=== PATIENT | female | born 1935 | race Caucasian/White ===

== ENCOUNTER 2017-07-17 09:56 | Inpatient (IN) | payer MEDICARE, OTHER ==
[2017-07-17] MEDS: SOD CHLORIDE 0.9% 500 ML IV (10:52)
[2017-07-17 10:56] LABS: ADD MAN DIFF? NO
[2017-07-17 11:04] LABS: BASOPHIL # 0.1 10^3/ul (0.0-0.1); BASOPHILS % 0.4 % (0.0-2.0); EOSINOPHILS # 0.1 10^3/ul (0.0-0.5); EOSINOPHILS % 0.5 % (0.0-7.0); HEMATOCRIT 41.2 % (37.0-47.0); HEMOGLOBIN 13.4 g/dl (12.0-16.0); LYMPHOCYTES # 3.5 10^3/ul (0.8-2.9); LYMPHOCYTES % 29.8 % (15.0-51.0); MEAN CORPUSCULAR HEMOGLOBIN 29.6 pg (29.0-33.0); MEAN CORPUSCULAR HGB CONC 32.5 g/dl (32.0-37.0); MEAN CORPUSCULAR VOLUME 91.2 fl (82.0-101.0); MEAN PLATELET VOLUME 11.5 fl (7.4-10.4); MONOCYTE # 0.7 10^3/ul (0.3-0.9); MONOCYTES % 6.1 % (0.0-11.0); NEUTROPHIL # 7.3 10^3/ul (1.6-7.5); NEUTROPHILS % 62.3 % (39.0-77.0); PLATELET COUNT 329 10^3/UL (140-415); RED BLOOD COUNT 4.52 10^6/ul (4.20-5.40); RED CELL DISTRIBUTION WIDTH 14.1 % (11.5-14.5)
[2017-07-17 11:04] LABS: WHITE BLOOD COUNT 11.7 10^3/ul (4.8-10.8)
[2017-07-17] MEDS: DILTIAZEM 25 MG INJ IV (11:34)
[2017-07-17 12:39] LABS: ALANINE AMINOTRANSFERASE 33 IU/L (13-69); ALBUMIN 3.9 g/dl (3.3-4.9); ALBUMIN/GLOBULIN RATIO 0.95; ALKALINE PHOSPHATASE 77 IU/L (42-121); ANION GAP 20 (8-16); ASPARTATE AMINO TRANSFERASE 24 IU/L (15-46); BILIRUBIN,INDIRECT 0.2 mg/dl (0-1.1); BILIRUBIN,TOTAL 0.2 mg/dl (0.2-1.3); BLOOD UREA NITROGEN 88 mg/dl (7-20); CALCIUM 9.6 mg/dl (8.4-10.2); CARBON DIOXIDE 16 mmol/L (21-31); CHLORIDE 100 mmol/L (97-110); CREATININE 1.91 mg/dl (0.44-1.00); GLUCOSE 252 mg/dl (70-220); POTASSIUM 5.5 mmol/L (3.5-5.1); SODIUM 130 mmol/L (135-144)
[2017-07-17 12:49] LABS: B-TYPE NATRIURETIC PEPTIDE 2660 PG/ML (0-450); TROPONIN-I < 0.012 ng/ml (0.00-0.12)
[2017-07-17] MEDS ORDERED: ONDANSETRON 4 MG INJ IV (13:30)
[2017-07-17] MEDS ORDERED: GLUCAGON 1 MG INJ IM (13:30)
[2017-07-17] MEDS ORDERED: GLUCOSE GEL 15 GRAM TUBE PO ×2 (13:30)
[2017-07-17] MEDS ORDERED: DEXTROSE 50% 50 ML SYRINGE IV ×2 (13:30)
[2017-07-17] MEDS ORDERED: DILTIAZEM 25 MG INJ IV (16:30)
[2017-07-17] MEDS ORDERED: INSULIN ASPART [NOVOLOG] 3 ML PEN SC (17:00)
[2017-07-17] MEDS: INSULIN ASPART [NOVOLOG] 3 ML PEN SC ×2 (18:05→20:30)
[2017-07-17] MEDS ORDERED: BISACODYL 10 MG SUPP PR (18:30)
[2017-07-17] MEDS: DIGOXIN 500 MCG INJ IV (18:31)
[2017-07-17] MEDS: SOD CHLORIDE 0.9% 1,000 ML IV (20:14)
[2017-07-17] MEDS: NA POLYST SULFON 15 GM/60 ML BTL PO (20:14)
[2017-07-17] MEDS: APIXABAN 5 MG TABLET PO (20:41)
[2017-07-17] MEDS: METOPROLOL 25 MG TAB PO (20:41)
[2017-07-18] MEDS: DIGOXIN 500 MCG INJ IV ×3 (00:29→12:49)
[2017-07-18] MEDS: ACCU-CHEK XX (02:00)
[2017-07-18 07:28] LABS: ADD MAN DIFF? NO
[2017-07-18 07:32] LABS: WHITE BLOOD COUNT 9.7 10^3/ul (4.8-10.8)
[2017-07-18 07:32] LABS: BASOPHIL # 0.1 10^3/ul (0.0-0.1); BASOPHILS % 0.5 % (0.0-2.0); EOSINOPHILS # 0.1 10^3/ul (0.0-0.5); EOSINOPHILS % 0.5 % (0.0-7.0); HEMATOCRIT 38.4 % (37.0-47.0); LYMPHOCYTES % 31.1 % (15.0-51.0); MEAN CORPUSCULAR HEMOGLOBIN 30.2 pg (29.0-33.0); MEAN CORPUSCULAR HGB CONC 33.9 g/dl (32.0-37.0); MEAN CORPUSCULAR VOLUME 89.3 fl (82.0-101.0); MEAN PLATELET VOLUME 10.7 fl (7.4-10.4); MONOCYTE # 0.6 10^3/ul (0.3-0.9); MONOCYTES % 6.4 % (0.0-11.0); NEUTROPHIL # 5.9 10^3/ul (1.6-7.5); NEUTROPHILS % 60.4 % (39.0-77.0); PLATELET COUNT 394 10^3/UL (140-415); RED CELL DISTRIBUTION WIDTH 14.2 % (11.5-14.5)
[2017-07-18 07:58] LABS: CHOL/HDL RATIO 2.9 RATIO; HDL CHOLESTEROL 25 mg/dl (33-92); LDL CHOLESTEROL,CALCULATED 38 mg/dl; TRIGLYCERIDES 57 mg/dl (0-149)
[2017-07-18 07:58] LABS: CHOLESTEROL 74 mg/dl (100-200)
[2017-07-18] MEDS: INSULIN ASPART [NOVOLOG] 3 ML PEN SC ×4 (08:00→21:02)
[2017-07-18 08:12] LABS: ANION GAP 21 (8-16); BLOOD UREA NITROGEN 85 mg/dl (7-20); CALCIUM 10.1 mg/dl (8.4-10.2); CARBON DIOXIDE 20 mmol/L (21-31); CHLORIDE 102 mmol/L (97-110); CREATININE 1.79 mg/dl (0.44-1.00); GLUCOSE 166 mg/dl (70-220); SODIUM 138 mmol/L (135-144)
[2017-07-18] MEDS: PANTOPRAZOLE 40 MG INJ IV (08:49)
[2017-07-18] MEDS: ASCORBIC ACID 500 MG TAB PO (08:50)
[2017-07-18] MEDS: APIXABAN 5 MG TABLET PO ×2 (08:50→21:00)
[2017-07-18] MEDS: METOPROLOL 25 MG TAB PO ×2 (08:51→21:00)
[2017-07-18 09:10] LABS: THYROID STIMULATING HORMONE 0.353 MIU/L (0.465-4.680)
[2017-07-18] MEDS: METHIMAZOLE 5 MG TAB PO ×2 (12:55→21:01)
[2017-07-18] MEDS: SOD CHLORIDE 0.9% 1,000 ML IV (19:00)
[2017-07-18 19:55] LABS: FREE T4 (FREE THYROXINE) 2.25 ng/dl (0.85-1.93)
[2017-07-18] MEDS: ATORVASTATIN 10 MG TAB PO (21:00)
[2017-07-19] MEDS: ACCU-CHEK XX (02:00)
[2017-07-19] MEDS: SOD CHLORIDE 0.9% 1,000 ML IV (07:26)
[2017-07-19] MEDS: APIXABAN 5 MG TABLET PO ×2 (08:00→20:55)
[2017-07-19] MEDS: ASCORBIC ACID 500 MG TAB PO (08:00)
[2017-07-19] MEDS: METHIMAZOLE 5 MG TAB PO ×3 (08:00→20:54)
[2017-07-19] MEDS: PANTOPRAZOLE 40 MG INJ IV (08:00)
[2017-07-19] MEDS: METOPROLOL 25 MG TAB PO ×2 (08:01→20:54)
[2017-07-19] MEDS: INSULIN ASPART [NOVOLOG] 3 ML PEN SC ×4 (08:05→20:58)
[2017-07-19] MEDS: INFLUENZA VIRUS VACCINE 0.5 ML (DISPENSING) IM* (08:10)
[2017-07-19 10:10] LABS: ADD MAN DIFF? NO
[2017-07-19 10:15] LABS: WHITE BLOOD COUNT 11.5 10^3/ul (4.8-10.8)
[2017-07-19 10:15] LABS: BASOPHIL # 0.1 10^3/ul (0.0-0.1); BASOPHILS % 0.5 % (0.0-2.0); EOSINOPHILS # 0.1 10^3/ul (0.0-0.5); EOSINOPHILS % 0.9 % (0.0-7.0); HEMATOCRIT 36.3 % (37.0-47.0); LYMPHOCYTES % 26.2 % (15.0-51.0); MEAN CORPUSCULAR HEMOGLOBIN 29.3 pg (29.0-33.0); MEAN CORPUSCULAR HGB CONC 33.1 g/dl (32.0-37.0); MEAN CORPUSCULAR VOLUME 88.8 fl (82.0-101.0); MEAN PLATELET VOLUME 10.6 fl (7.4-10.4); MONOCYTE # 0.7 10^3/ul (0.3-0.9); MONOCYTES % 5.8 % (0.0-11.0); NEUTROPHIL # 7.6 10^3/ul (1.6-7.5); NEUTROPHILS % 65.6 % (39.0-77.0); PLATELET COUNT 387 10^3/UL (140-415); RED BLOOD COUNT 4.09 10^6/ul (4.20-5.40)
[2017-07-19 10:44] LABS: ANION GAP 18 (8-16); BLOOD UREA NITROGEN 67 mg/dl (7-20); CALCIUM 9.5 mg/dl (8.4-10.2); CARBON DIOXIDE 15 mmol/L (21-31); CHLORIDE 108 mmol/L (97-110); CREATININE 1.23 mg/dl (0.44-1.00); GLUCOSE 187 mg/dl (70-220); POTASSIUM 4.2 mmol/L (3.5-5.1); SODIUM 137 mmol/L (135-144)
[2017-07-19 10:49] LABS: MAGNESIUM 1.6 mg/dl (1.7-2.5)
[2017-07-19] MEDS: MAGNESIUM SULFATE 2 GM/50 ML 50 ML IVPB ×2 (13:42→16:29)
[2017-07-19] MEDS: ATORVASTATIN 10 MG TAB PO (20:55)
[2017-07-19] MEDS: INSULIN GLARGINE [LANtus] 3 ML PEN SC (20:58)
[2017-07-19] MEDS: CITRIC ACID/SODIUM CITRATE 15 ML CUP PO (22:13)
[2017-07-20] MEDS: ACCU-CHEK XX (02:40)
[2017-07-20] MEDS: INSULIN ASPART [NOVOLOG] 3 ML PEN SC ×5 (08:00→21:02)
[2017-07-20] MEDS: CITRIC ACID/SODIUM CITRATE 15 ML CUP PO ×2 (08:37→20:33)
[2017-07-20] MEDS: PANTOPRAZOLE 40 MG INJ IV (08:37)
[2017-07-20] MEDS: ASCORBIC ACID 500 MG TAB PO (08:38)
[2017-07-20] MEDS: METHIMAZOLE 5 MG TAB PO ×3 (08:38→20:33)
[2017-07-20] MEDS: METOPROLOL 25 MG TAB PO ×2 (08:38→20:34)
[2017-07-20] MEDS: APIXABAN 5 MG TABLET PO ×2 (08:38→20:34)
[2017-07-20 09:02] LABS: ANION GAP 18 (8-16); BLOOD UREA NITROGEN 53 mg/dl (7-20); CALCIUM 9.5 mg/dl (8.4-10.2); CARBON DIOXIDE 19 mmol/L (21-31); CHLORIDE 109 mmol/L (97-110); CREATININE 1.07 mg/dl (0.44-1.00); GLUCOSE 56 mg/dl (70-220); MAGNESIUM 2.8 mg/dl (1.7-2.5); POTASSIUM 3.7 mmol/L (3.5-5.1); SODIUM 142 mmol/L (135-144)
[2017-07-20] MEDS ORDERED: PENDING SANTYL ORDER FOR WOUND CARE XX (10:30)
[2017-07-20] MEDS: COLLAGENASE 30 GM TUBE TOP (12:32)
[2017-07-20] MEDS: SOD CHLORIDE 0.9% 1,000 ML IV (12:33)
[2017-07-20] MEDS: INSULIN GLARGINE [LANtus] 3 ML PEN SC (20:32)
[2017-07-20] MEDS: ATORVASTATIN 10 MG TAB PO (20:34)
[2017-07-21] MEDS: ACCU-CHEK XX (01:04)
[2017-07-21 07:12] LABS: ADD MAN DIFF? NO
[2017-07-21 07:15] LABS: WHITE BLOOD COUNT 11.6 10^3/ul (4.8-10.8)
[2017-07-21 07:15] LABS: BASOPHIL # 0.1 10^3/ul (0.0-0.1); BASOPHILS % 0.4 % (0.0-2.0); EOSINOPHILS # 0.2 10^3/ul (0.0-0.5); EOSINOPHILS % 1.3 % (0.0-7.0); HEMOGLOBIN 11.1 g/dl (12.0-16.0); LYMPHOCYTES # 3.3 10^3/ul (0.8-2.9); LYMPHOCYTES % 28.1 % (15.0-51.0); MEAN CORPUSCULAR HEMOGLOBIN 30.2 pg (29.0-33.0); MEAN CORPUSCULAR HGB CONC 33.6 g/dl (32.0-37.0); MEAN CORPUSCULAR VOLUME 89.7 fl (82.0-101.0); MEAN PLATELET VOLUME 10.1 fl (7.4-10.4); MONOCYTE # 0.7 10^3/ul (0.3-0.9); MONOCYTES % 6.3 % (0.0-11.0); NEUTROPHIL # 7.3 10^3/ul (1.6-7.5); NEUTROPHILS % 62.8 % (39.0-77.0); PLATELET COUNT 342 10^3/UL (140-415); RED BLOOD COUNT 3.68 10^6/ul (4.20-5.40); RED CELL DISTRIBUTION WIDTH 14.4 % (11.5-14.5)
[2017-07-21] MEDS: INSULIN ASPART [NOVOLOG] 3 ML PEN SC ×7 (07:59→21:00)
[2017-07-21 08:05] LABS: ANION GAP 15 (8-16); BLOOD UREA NITROGEN 35 mg/dl (7-20); CALCIUM 8.7 mg/dl (8.4-10.2); CARBON DIOXIDE 22 mmol/L (21-31); CHLORIDE 108 mmol/L (97-110); CREATININE 0.83 mg/dl (0.44-1.00); GLUCOSE 79 mg/dl (70-220); POTASSIUM 3.8 mmol/L (3.5-5.1); SODIUM 141 mmol/L (135-144)
[2017-07-21] MEDS: PANTOPRAZOLE 40 MG INJ IV (08:21)
[2017-07-21] MEDS: CITRIC ACID/SODIUM CITRATE 15 ML CUP PO ×2 (08:21→21:20)
[2017-07-21] MEDS: ASCORBIC ACID 500 MG TAB PO (08:22)
[2017-07-21] MEDS: METHIMAZOLE 5 MG TAB PO ×3 (08:22→21:20)
[2017-07-21] MEDS: APIXABAN 5 MG TABLET PO ×2 (08:22→21:20)
[2017-07-21] MEDS: LINAGLIPTIN 5 MG TABLET PO (08:22)
[2017-07-21] MEDS: METOPROLOL 25 MG TAB PO ×2 (08:22→21:21)
[2017-07-21] MEDS: COLLAGENASE 30 GM TUBE TOP (08:23)
[2017-07-21 16:09] LABS: ADD UMIC YES; UR ASCORBIC ACID 40 mg/dL (NEGATIVE); UR BACTERIA MANY /HPF (NONE SEEN); UR BILIRUBIN (Dip) NEGATIVE (NEGATIVE); UR BLOOD (Dip) 1+ mg/dL (NEGATIVE); UR CLARITY TURBID (CLEAR); UR COLOR AMBER (YELLOW); UR GLUCOSE (Dip) NEGATIVE (NEGATIVE); UR KETONES (Dip) NEGATIVE (NEGATIVE); UR LEUKOCYTE ESTERASE (Dip) 3+ Leu/ul (NEGATIVE); UR MUCUS MANY /HPF (NONE SEEN); UR NITRITE (Dip) POSITIVE (NEGATIVE); UR NONSQUAMOUS EPITHELIAL CELL 2 /HPF (NONE SEEN); UR RBC 56 /HPF (0-5); UR SPECIFIC GRAVITY (Dip) 1.014 (1.003-1.030); UR SQUAMOUS EPITHELIAL CELL FEW /HPF (FEW); UR TOTAL PROTEIN (Dip) 1+ mg/dl (NEGATIVE); UR UROBILINOGEN (Dip) 1+ mg/dL (NEGATIVE); UR WBC > 182 /HPF (0-5)
[2017-07-21] MEDS: GLUCOSE GEL 15 GRAM TUBE BUCCAL (17:21)
[2017-07-21] MEDS: SOD CHLORIDE 0.9% 1,000 ML IV (17:26)
[2017-07-21 18:32] LABS: GLUCOSE 102 mg/dl (70-220)
[2017-07-21] MEDS: INSULIN GLARGINE [LANtus] 3 ML PEN SC (21:06)
[2017-07-21] MEDS: ATORVASTATIN 10 MG TAB PO (21:20)
[2017-07-22] MEDS: ACCU-CHEK XX (01:01)
[2017-07-22] MEDS: INSULIN ASPART [NOVOLOG] 3 ML PEN SC ×7 (08:00→20:30)
[2017-07-22] MEDS: PANTOPRAZOLE 40 MG INJ IV (08:22)
[2017-07-22] MEDS: CITRIC ACID/SODIUM CITRATE 15 ML CUP PO ×2 (08:23→20:25)
[2017-07-22] MEDS: METOPROLOL 25 MG TAB PO ×2 (08:23→20:26)
[2017-07-22] MEDS: APIXABAN 5 MG TABLET PO ×2 (08:23→20:33)
[2017-07-22] MEDS: METHIMAZOLE 5 MG TAB PO ×3 (08:23→20:25)
[2017-07-22] MEDS: COLLAGENASE 30 GM TUBE TOP (08:24)
[2017-07-22] MEDS: LINAGLIPTIN 5 MG TABLET PO (08:24)
[2017-07-22] MEDS: ASCORBIC ACID 500 MG TAB PO (08:24)
[2017-07-22 09:03] LABS: ADD MAN DIFF? NO
[2017-07-22 09:04] LABS: WHITE BLOOD COUNT 13.4 10^3/ul (4.8-10.8)
[2017-07-22 09:04] LABS: BASOPHIL # 0.1 10^3/ul (0.0-0.1); BASOPHILS % 0.4 % (0.0-2.0); EOSINOPHILS # 0.2 10^3/ul (0.0-0.5); EOSINOPHILS % 1.6 % (0.0-7.0); HEMATOCRIT 36.6 % (37.0-47.0); HEMOGLOBIN 11.8 g/dl (12.0-16.0); LYMPHOCYTES # 3.3 10^3/ul (0.8-2.9); LYMPHOCYTES % 24.7 % (15.0-51.0); MEAN CORPUSCULAR HEMOGLOBIN 29.4 pg (29.0-33.0); MEAN CORPUSCULAR HGB CONC 32.2 g/dl (32.0-37.0); MEAN CORPUSCULAR VOLUME 91.3 fl (82.0-101.0); MONOCYTE # 0.7 10^3/ul (0.3-0.9); MONOCYTES % 5.5 % (0.0-11.0); NEUTROPHIL # 8.9 10^3/ul (1.6-7.5); NEUTROPHILS % 66.7 % (39.0-77.0); PLATELET COUNT 326 10^3/UL (140-415); RED BLOOD COUNT 4.01 10^6/ul (4.20-5.40); RED CELL DISTRIBUTION WIDTH 14.4 % (11.5-14.5)
[2017-07-22 09:25] LABS: ANION GAP 15 (8-16); BLOOD UREA NITROGEN 26 mg/dl (7-20); CALCIUM 8.6 mg/dl (8.4-10.2); CARBON DIOXIDE 23 mmol/L (21-31); CHLORIDE 106 mmol/L (97-110); CREATININE 0.75 mg/dl (0.44-1.00); GLUCOSE 111 mg/dl (70-220); SODIUM 140 mmol/L (135-144)
[2017-07-22] MEDS: SOD CHLORIDE 0.9% 1,000 ML IV ×2 (17:37→19:00)
[2017-07-22] MEDS: ATORVASTATIN 10 MG TAB PO (20:25)
[2017-07-22] MEDS: INSULIN GLARGINE [LANtus] 3 ML PEN SC (20:30)
[2017-07-23] MEDS: ACCU-CHEK XX ×2 (02:00→23:29)
[2017-07-23 07:41] LABS: ADD MAN DIFF? NO
[2017-07-23 07:47] LABS: BASOPHIL # 0.1 10^3/ul (0.0-0.1); BASOPHILS % 0.4 % (0.0-2.0); EOSINOPHILS # 0.3 10^3/ul (0.0-0.5); EOSINOPHILS % 1.8 % (0.0-7.0); HEMATOCRIT 32.1 % (37.0-47.0); HEMOGLOBIN 10.5 g/dl (12.0-16.0); LYMPHOCYTES # 3.4 10^3/ul (0.8-2.9); LYMPHOCYTES % 23.9 % (15.0-51.0); MEAN CORPUSCULAR HEMOGLOBIN 29.9 pg (29.0-33.0); MEAN CORPUSCULAR HGB CONC 32.7 g/dl (32.0-37.0); MEAN CORPUSCULAR VOLUME 91.5 fl (82.0-101.0); MEAN PLATELET VOLUME 11.4 fl (7.4-10.4); MONOCYTE # 0.9 10^3/ul (0.3-0.9); MONOCYTES % 6.1 % (0.0-11.0); NEUTROPHIL # 9.5 10^3/ul (1.6-7.5); NEUTROPHILS % 66.9 % (39.0-77.0); RED BLOOD COUNT 3.51 10^6/ul (4.20-5.40); RED CELL DISTRIBUTION WIDTH 14.6 % (11.5-14.5)
[2017-07-23 07:47] LABS: WHITE BLOOD COUNT 14.2 10^3/ul (4.8-10.8)
[2017-07-23 07:51] LABS: PLATELET COUNT 202 10^3/UL (140-415); POSITIVE DIFF @See below
[2017-07-23 08:09] LABS: ANION GAP 14 (8-16); BLOOD UREA NITROGEN 25 mg/dl (7-20); CALCIUM 8.4 mg/dl (8.4-10.2); CARBON DIOXIDE 24 mmol/L (21-31); CHLORIDE 103 mmol/L (97-110); CREATININE 0.75 mg/dl (0.44-1.00); GLUCOSE 157 mg/dl (70-220); POTASSIUM 4.4 mmol/L (3.5-5.1); SODIUM 137 mmol/L (135-144)
[2017-07-23] MEDS: ASCORBIC ACID 500 MG TAB PO (08:33)
[2017-07-23] MEDS: LINAGLIPTIN 5 MG TABLET PO (08:33)
[2017-07-23] MEDS: APIXABAN 5 MG TABLET PO ×2 (08:33→20:37)
[2017-07-23] MEDS: PANTOPRAZOLE 40 MG INJ IV (08:33)
[2017-07-23] MEDS: METHIMAZOLE 5 MG TAB PO ×3 (08:34→20:36)
[2017-07-23] MEDS: METOPROLOL 25 MG TAB PO ×2 (08:35→20:36)
[2017-07-23] MEDS: INSULIN ASPART [NOVOLOG] 3 ML PEN SC ×7 (08:53→20:37)
[2017-07-23] MEDS: COLLAGENASE 30 GM TUBE TOP (08:54)
[2017-07-23] MEDS: CITRIC ACID/SODIUM CITRATE 15 ML CUP PO (12:33)
[2017-07-23] MEDS ORDERED: CEFEPIME 1GM/50 ML (PMX) 50 ML IVPB (16:30)
[2017-07-23] MEDS: SOD CHLORIDE 0.9% 1,000 ML IV (19:00)
[2017-07-23] MEDS: INSULIN GLARGINE [LANtus] 3 ML PEN SC (20:35)
[2017-07-23] MEDS: ATORVASTATIN 10 MG TAB PO (20:36)
[2017-07-23] MEDS: CEFEPIME 1GM/50 ML (PMX) 50 ML IVPB (20:39)
[2017-07-24] MEDS: CITRIC ACID/SODIUM CITRATE 15 ML CUP PO ×3 (00:45→21:00)
[2017-07-24] MEDS: ACETAMINOPHEN 325 MG TAB PO (07:27)
[2017-07-24 07:54] LABS: ADD MAN DIFF? NO
[2017-07-24 07:58] LABS: WHITE BLOOD COUNT 11.7 10^3/ul (4.8-10.8)
[2017-07-24 07:58] LABS: BASOPHIL # 0.1 10^3/ul (0.0-0.1); BASOPHILS % 0.4 % (0.0-2.0); EOSINOPHILS # 0.3 10^3/ul (0.0-0.5); EOSINOPHILS % 2.1 % (0.0-7.0); HEMATOCRIT 31.8 % (37.0-47.0); HEMOGLOBIN 10.3 g/dl (12.0-16.0); LYMPHOCYTES # 3.4 10^3/ul (0.8-2.9); LYMPHOCYTES % 28.6 % (15.0-51.0); MEAN CORPUSCULAR HEMOGLOBIN 29.9 pg (29.0-33.0); MEAN CORPUSCULAR HGB CONC 32.4 g/dl (32.0-37.0); MEAN CORPUSCULAR VOLUME 92.2 fl (82.0-101.0); MEAN PLATELET VOLUME 10.7 fl (7.4-10.4); MONOCYTE # 0.7 10^3/ul (0.3-0.9); MONOCYTES % 5.8 % (0.0-11.0); NEUTROPHIL # 7.3 10^3/ul (1.6-7.5); NEUTROPHILS % 62.2 % (39.0-77.0); PLATELET COUNT 269 10^3/UL (140-415); RED BLOOD COUNT 3.45 10^6/ul (4.20-5.40); RED CELL DISTRIBUTION WIDTH 14.5 % (11.5-14.5)
[2017-07-24 08:21] LABS: ANION GAP 13 (8-16); BLOOD UREA NITROGEN 24 mg/dl (7-20); CALCIUM 8.3 mg/dl (8.4-10.2); CARBON DIOXIDE 26 mmol/L (21-31); CHLORIDE 104 mmol/L (97-110); GLUCOSE 132 mg/dl (70-220); POTASSIUM 3.8 mmol/L (3.5-5.1); SODIUM 139 mmol/L (135-144)
[2017-07-24] MEDS: APIXABAN 5 MG TABLET PO ×2 (09:00→20:32)
[2017-07-24] MEDS: METOPROLOL 25 MG TAB PO ×2 (09:00→20:34)
[2017-07-24] MEDS: ASCORBIC ACID 500 MG TAB PO (09:00)
[2017-07-24] MEDS: LINAGLIPTIN 5 MG TABLET PO (09:01)
[2017-07-24] MEDS: METHIMAZOLE 5 MG TAB PO ×3 (09:01→20:32)
[2017-07-24] MEDS: PANTOPRAZOLE 40 MG INJ IV (09:02)
[2017-07-24] MEDS: COLLAGENASE 30 GM TUBE TOP (09:03)
[2017-07-24] MEDS: INSULIN ASPART [NOVOLOG] 3 ML PEN SC ×7 (09:09→20:34)
[2017-07-24] MEDS: CEFEPIME 1GM/50 ML (PMX) 50 ML IVPB ×2 (09:24→20:31)
[2017-07-24] MEDS: ATORVASTATIN 10 MG TAB PO (20:32)
[2017-07-24] MEDS: SOD CHLORIDE 0.9% 1,000 ML IV (20:36)
[2017-07-24] MEDS: INSULIN GLARGINE [LANtus] 3 ML PEN SC (20:37)
[2017-07-24] MEDS: ACCU-CHEK XX (20:54)
[2017-07-25] MEDS: CITRIC ACID/SODIUM CITRATE 15 ML CUP PO ×3 (00:22→22:41)
[2017-07-25] MEDS: ACETAMINOPHEN 325 MG TAB PO (00:28)
[2017-07-25 07:50] LABS: ADD MAN DIFF? NO
[2017-07-25 08:01] LABS: BASOPHIL # 0.1 10^3/ul (0.0-0.1); BASOPHILS % 0.5 % (0.0-2.0); EOSINOPHILS # 0.3 10^3/ul (0.0-0.5); EOSINOPHILS % 2.7 % (0.0-7.0); HEMATOCRIT 30.4 % (37.0-47.0); HEMOGLOBIN 9.9 g/dl (12.0-16.0); LYMPHOCYTES % 32.4 % (15.0-51.0); MEAN CORPUSCULAR HEMOGLOBIN 29.6 pg (29.0-33.0); MEAN CORPUSCULAR HGB CONC 32.6 g/dl (32.0-37.0); MEAN PLATELET VOLUME 10.7 fl (7.4-10.4); MONOCYTE # 0.6 10^3/ul (0.3-0.9); MONOCYTES % 6.7 % (0.0-11.0); NEUTROPHIL # 5.2 10^3/ul (1.6-7.5); NEUTROPHILS % 56.7 % (39.0-77.0); PLATELET COUNT 226 10^3/UL (140-415); RED BLOOD COUNT 3.34 10^6/ul (4.20-5.40); RED CELL DISTRIBUTION WIDTH 14.2 % (11.5-14.5)
[2017-07-25 08:01] LABS: WHITE BLOOD COUNT 9.2 10^3/ul (4.8-10.8)
[2017-07-25 08:21] LABS: LACTIC ACID 0.8 mmol/L (0.5-2.0)
[2017-07-25 08:31] LABS: ANION GAP 14 (8-16); BLOOD UREA NITROGEN 32 mg/dl (7-20); CALCIUM 7.9 mg/dl (8.4-10.2); CARBON DIOXIDE 25 mmol/L (21-31); CHLORIDE 104 mmol/L (97-110); CREATININE 0.77 mg/dl (0.44-1.00); GLUCOSE 193 mg/dl (70-220); POTASSIUM 4.2 mmol/L (3.5-5.1); SODIUM 139 mmol/L (135-144)
[2017-07-25] MEDS: INSULIN ASPART [NOVOLOG] 3 ML PEN SC ×7 (08:55→21:00)
[2017-07-25] MEDS: METHIMAZOLE 5 MG TAB PO ×3 (08:56→22:39)
[2017-07-25] MEDS: APIXABAN 5 MG TABLET PO ×2 (08:56→22:40)
[2017-07-25] MEDS: COLLAGENASE 30 GM TUBE TOP (08:56)
[2017-07-25] MEDS: ASCORBIC ACID 500 MG TAB PO (08:56)
[2017-07-25] MEDS: LINAGLIPTIN 5 MG TABLET PO (08:57)
[2017-07-25] MEDS: METOPROLOL 25 MG TAB PO ×2 (08:57→22:46)
[2017-07-25] MEDS: PANTOPRAZOLE 40 MG INJ IV (09:05)
[2017-07-25] MEDS: CEFEPIME 1GM/50 ML (PMX) 50 ML IVPB (09:24)
[2017-07-25] MEDS ORDERED: CEFTRIAXONE 1 GM/50 ML (PMX) 50 ML IVPB (17:30)
[2017-07-25] MEDS: CEFTRIAXONE 1 GM/50 ML (PMX) 50 ML IVPB (22:38)
[2017-07-25] MEDS: SOD CHLORIDE 0.9% 1,000 ML IV (22:38)
[2017-07-25] MEDS: ATORVASTATIN 10 MG TAB PO (22:39)
[2017-07-25] MEDS: INSULIN GLARGINE [LANtus] 3 ML PEN SC (22:43)
[2017-07-26] MEDS: ACCU-CHEK XX (01:07)
[2017-07-26 08:00] LABS: ADD MAN DIFF? NO
[2017-07-26 08:04] LABS: BASOPHIL # 0.1 10^3/ul (0.0-0.1); BASOPHILS % 0.6 % (0.0-2.0); EOSINOPHILS # 0.3 10^3/ul (0.0-0.5); HEMATOCRIT 32.4 % (37.0-47.0); HEMOGLOBIN 10.4 g/dl (12.0-16.0); LYMPHOCYTES # 2.9 10^3/ul (0.8-2.9); LYMPHOCYTES % 33.8 % (15.0-51.0); MEAN CORPUSCULAR HEMOGLOBIN 29.1 pg (29.0-33.0); MEAN CORPUSCULAR HGB CONC 32.1 g/dl (32.0-37.0); MEAN CORPUSCULAR VOLUME 90.8 fl (82.0-101.0); MEAN PLATELET VOLUME 11.2 fl (7.4-10.4); MONOCYTE # 0.6 10^3/ul (0.3-0.9); MONOCYTES % 7.4 % (0.0-11.0); NEUTROPHIL # 4.7 10^3/ul (1.6-7.5); NEUTROPHILS % 53.9 % (39.0-77.0); PLATELET COUNT 244 10^3/UL (140-415); RED BLOOD COUNT 3.57 10^6/ul (4.20-5.40); RED CELL DISTRIBUTION WIDTH 14.2 % (11.5-14.5)
[2017-07-26 08:04] LABS: WHITE BLOOD COUNT 8.7 10^3/ul (4.8-10.8)
[2017-07-26 08:32] LABS: ANION GAP 13 (8-16); BLOOD UREA NITROGEN 23 mg/dl (7-20); CALCIUM 8.2 mg/dl (8.4-10.2); CARBON DIOXIDE 26 mmol/L (21-31); CHLORIDE 103 mmol/L (97-110); CREATININE 0.73 mg/dl (0.44-1.00); GLUCOSE 150 mg/dl (70-220); POTASSIUM 4.1 mmol/L (3.5-5.1); SODIUM 138 mmol/L (135-144)
[2017-07-26] MEDS: INSULIN ASPART [NOVOLOG] 3 ML PEN SC ×7 (08:32→20:20)
[2017-07-26] MEDS: PANTOPRAZOLE 40 MG INJ IV (08:32)
[2017-07-26] MEDS: CITRIC ACID/SODIUM CITRATE 15 ML CUP PO ×2 (08:33→20:18)
[2017-07-26] MEDS: APIXABAN 5 MG TABLET PO ×2 (08:33→20:18)
[2017-07-26] MEDS: LINAGLIPTIN 5 MG TABLET PO (08:33)
[2017-07-26] MEDS: METHIMAZOLE 5 MG TAB PO ×3 (08:33→20:22)
[2017-07-26] MEDS: ASCORBIC ACID 500 MG TAB PO (08:33)
[2017-07-26] MEDS: METOPROLOL 25 MG TAB PO ×2 (08:34→22:20)
[2017-07-26] MEDS: COLLAGENASE 30 GM TUBE TOP (08:34)
[2017-07-26] MEDS: SOD CHLORIDE 0.9% 1,000 ML IV (19:00)
[2017-07-26] MEDS: DIGOXIN 500 MCG INJ IV (19:13)
[2017-07-26] MEDS: CEFTRIAXONE 1 GM/50 ML (PMX) 50 ML IVPB (20:00)
[2017-07-26] MEDS: ATORVASTATIN 10 MG TAB PO (20:18)
[2017-07-26] MEDS: INSULIN GLARGINE [LANtus] 3 ML PEN SC (20:20)
[2017-07-27] MEDS: ACCU-CHEK XX (02:00)
[2017-07-27] MEDS: METOPROLOL 25 MG TAB PO ×2 (06:22→12:30)
[2017-07-27 08:06] LABS: ADD MAN DIFF? NO
[2017-07-27 08:19] LABS: WHITE BLOOD COUNT 9.3 10^3/ul (4.8-10.8)
[2017-07-27 08:19] LABS: BASOPHILS % 0.4 % (0.0-2.0); EOSINOPHILS # 0.2 10^3/ul (0.0-0.5); EOSINOPHILS % 2.6 % (0.0-7.0); HEMATOCRIT 30.5 % (37.0-47.0); HEMOGLOBIN 9.9 g/dl (12.0-16.0); LYMPHOCYTES # 2.9 10^3/ul (0.8-2.9); LYMPHOCYTES % 31.1 % (15.0-51.0); MEAN CORPUSCULAR HEMOGLOBIN 29.3 pg (29.0-33.0); MEAN CORPUSCULAR HGB CONC 32.5 g/dl (32.0-37.0); MEAN CORPUSCULAR VOLUME 90.2 fl (82.0-101.0); MEAN PLATELET VOLUME 11.3 fl (7.4-10.4); MONOCYTE # 0.6 10^3/ul (0.3-0.9); MONOCYTES % 6.5 % (0.0-11.0); NEUTROPHIL # 5.5 10^3/ul (1.6-7.5); NEUTROPHILS % 58.8 % (39.0-77.0); PLATELET COUNT 253 10^3/UL (140-415); RED BLOOD COUNT 3.38 10^6/ul (4.20-5.40); RED CELL DISTRIBUTION WIDTH 14.5 % (11.5-14.5)
[2017-07-27 08:40] LABS: ANION GAP 11 (8-16); BLOOD UREA NITROGEN 19 mg/dl (7-20); CALCIUM 8.3 mg/dl (8.4-10.2); CARBON DIOXIDE 28 mmol/L (21-31); CHLORIDE 103 mmol/L (97-110); CREATININE 0.75 mg/dl (0.44-1.00); GLUCOSE 112 mg/dl (70-220); POTASSIUM 3.9 mmol/L (3.5-5.1); SODIUM 138 mmol/L (135-144)
[2017-07-27] MEDS: CITRIC ACID/SODIUM CITRATE 15 ML CUP PO (08:55)
[2017-07-27] MEDS: COLLAGENASE 30 GM TUBE TOP (08:55)
[2017-07-27] MEDS: PANTOPRAZOLE 40 MG INJ IV (08:56)
[2017-07-27] MEDS: METHIMAZOLE 5 MG TAB PO ×2 (08:57→12:29)
[2017-07-27] MEDS: LINAGLIPTIN 5 MG TABLET PO (08:57)
[2017-07-27] MEDS: ASCORBIC ACID 500 MG TAB PO (08:57)
[2017-07-27] MEDS: APIXABAN 5 MG TABLET PO (08:58)
[2017-07-27] MEDS: INSULIN ASPART [NOVOLOG] 3 ML PEN SC ×4 (09:00→12:53)
== END 2017-07-27 14:03 | DRG 308 ==
LOC: E/R 09:56 → MS4 10:45
PROVIDERS: Internal Medicine
DX: I48.91 Unspecified atrial fibrillation (principal); G93.41 Metabolic encephalopathy; L89.154 Pressure ulcer of sacral region, stage 4; I50.31 Acute diastolic (congestive) heart failure; N17.9 Acute kidney failure, unspecified; E87.2 Acidosis; I13.0 Hypertensive heart and chronic kidney disease with heart failure and stage 1 through stage 4 chronic kidney disease, or unspecified chronic kidney disease; E11.22 Type 2 diabetes mellitus with diabetic chronic kidney disease; E87.1 Hypo-osmolality and hyponatremia; N39.0 Urinary tract infection, site not specified; E11.622 Type 2 diabetes mellitus with other skin ulcer; E11.65 Type 2 diabetes mellitus with hyperglycemia; B96.1 Klebsiella pneumoniae [K. pneumoniae] as the cause of diseases classified elsewhere; B96.89 Other specified bacterial agents as the cause of diseases classified elsewhere; N18.9 Chronic kidney disease, unspecified; E87.6 Hypokalemia; E03.9 Hypothyroidism, unspecified; Z88.0 Allergy status to penicillin; Z88.2 Allergy status to sulfonamides; Z79.4 Long term (current) use of insulin
CPT/HCPCS: 36415; 71010; 80048; 80053; 80061; 81001; 82947; 82962; 83036; 83605; 83735; 83880; 84145; 84439; 84443; 84484; 85025; 87040; 87081; 87086; 90686; 93005; 93306; 96374; 99291-25